=== PATIENT | female | born 1965 | race African-American/Black ===

== ENCOUNTER → 2017-12-22 | Day surgery (SDC) | payer BC ==
[~2017-12-22] VITALS: Ht 163.8 cm; Wt 51.3 kg
[2017-12-22] VITALS (9 sets, daily range): BP systolic 96–112; BP diastolic 56–68
[~2017-12-22] MED LIST: Acetaminophen (Non formulary) 100 ML IV ONE; Atropine Inj 1mg/10ml Syr IV PRN; Bacitracin 50000 Units Vial ONE; Bacitracin Oint 15gm Tube TOPIC ONE; Dexamethasone 4mg/ml vial ONE; DiphenhydrAMINE 50mg/ml Inj IVP PRN; EPINEPHrine 1mg/1ml Amp ONE; HYDROcodone/Acetamin 7.5/325 tab ORAL PRN; Hydromorphone 0.5mg/0.5ml inj IVP PRN; Ketorolac 30mg Inj IV PRN; LORazepam Inj 2mg/ml 1ml IV PRN; LR 1000ml 1,000 ML IVLG SCH; LR 1000ml ONE; Labetalol 5mg/ml 20ml vial IV PRN; Lidocaine 1% 10mg/ml/Epi 0.005mg/ml 30ml vial INJ ONE; Lidocaine 1% MPF 10mg/ml 5ml ONE; Lidocaine 1% Plain 30 ml INJ ONE; Metoclopramide 10mg/2ml Inj IVP PRN; Midazolam 2mg/2ml Inj IVP PRN; NS 110ml IRRIG ONE; Norco 5mg/325mg tab ORAL PRN; Propofol 200mg/20ml IV ONE; Ropivacaine 5mg/ml Vial 30ml INJ ONE; Sodium Chloride 10ml vial INJ ONE; Sodium Chloride 500ML 500 ML IV ONE; fentaNYL 100 mcg/2 mL IV ONE; fentaNYL 100 mcg/2 mL IV PRN; oxyCODONE HCL/Acetaminophen 5/325mg ORAL PRN
--- NOTE | 2017-12-22 13:33 | Emergency Room Report ---
History of Present Illness General Chief Complaint: General Complaint Source: Patient Present Illness HPI Patient is a 52-year-old female who presented after increased right-sided breast swelling. Patient had recent plastic surgery which included facial as well as a scar revision. The patient was noted to have increased swelling to her right breast. Patient denied any severe pain. She reportedly had been taking medications for nausea. She had surgery yesterday. Patient is followed by Dr. Bruce Lee. The patient was noted to have no fever or dizziness. She denies any leg pain or swelling. She broke having breakfast at aproximately 9 AM. Allergies: Coded Allergies: No Known Allergies (Unverified , 12/22/17) Patient History Last Menstrual Period: 11/07/17 Reviewed Nursing Documentation: PMH: Agreed; PSxH: Agreed Nursing Documentation-PMH Past Medical History: No Stated History Review of Systems All Other Systems: negative except mentioned in HPI Physical Exam Vital Signs Date Time Temp Pulse Resp B/P (MAP) Pulse Ox O2 Delivery O2 Flow Rate FiO2 12/22/17 13:06 98.0 98 18 104/65 95 Room Air 98.1 Sp02 EP Interpretation: reviewed, normal General Appearance: normal inspection, well appearing, no apparent distress, alert, GCS 15 Head: atraumatic ENT: normal ENT inspection, hearing grossly normal, normal voice Neck: normal inspection, full range of motion, supple, no bony tend Respiratory: normal inspection, lungs clear, normal breath sounds, no respiratory distress, no retraction, no wheezing Cardiovascular #1: regular rate, rhythm, no edema Gastrointestinal: normal inspection, normal bowel sounds, non tender, soft, no guarding, no hernia Genitourinary: no CVA tenderness Musculoskeletal: normal inspection, back normal, normal range of motion Neurologic: normal inspection, alert, oriented x3, responsive, hog dropper III-XII nml as tested, motor strength/tone normal, speech normal Psychiatric: normal inspection, judgement/insight normal, mood/affect normal Skin: no rash, other - multiple areas of likely postsurgical bruising Medical Decision Making Diagnostic Impression: Primary Impression: Hematoma Additional Impression: S/P plastic surgery ER Course Patient presented for hematoma. Differential diagnosis included was not limited to coagulopathy, trauma, thrombocytopenia, anemia among others.Because of complexity of patient's case laboratory testing and imaging studies were ordered.Laboratory testing was notable for elevated white blood count consistent with patient's recent surgery. The patient's QT was noted be slightly prolonged. This may be due to patient's medications. The patient was noted to be taking scopolamine for nausea as well as Effexor. Per discussion with Dr. Lee the patient will be given antibiotics preoperatively The patient will be taken to the OR for operative management of hematoma by Dr. Lee. The patient's pain Appears well-controlled. Labs Test 12/22/17 13:33 White Blood Count 16.6 K/UL (4.8-10.8) Red Blood Count 3.92 M/UL (4.20-5.40) Hemoglobin 12.1 G/DL (12.0-16.0) Hematocrit 36.3 % (37.0-47.0) Mean Corpuscular Volume 93 FL (80-99) Mean Corpuscular Hemoglobin 31.0 PG (27.0-31.0) Mean Corpuscular Hemoglobin Concent 33.4 G/DL (32.0-36.0) Red Cell Distribution Width 12.0 % (11.6-14.8) Platelet Count 332 K/UL (150-450) Mean Platelet Volume 5.6 FL (6.5-10.1) Neutrophils (%) (Auto) 83.2 % (45.0-75.0) Lymphocytes (%) (Auto) 8.8 % (20.0-45.0) Monocytes (%) (Auto) 7.9 % (1.0-10.0) Eosinophils (%) (Auto) 0.0 % (0.0-3.0) Basophils (%) (Auto) 0.2 % (0.0-2.0) Prothrombin Time 11.3 SEC (9.30-11.50) Prothromb Time International Ratio 1.1 (0.9-1.1) Activated Partial Thromboplast Time 26 SEC (23-33) Urine HCG, Qualitative Negative (NEGATIVE) Sodium Level 139 MMOL/L (136-145) Potassium Level 3.9 MMOL/L (3.5-5.1) Chloride Level 106 MMOL/L (98-107) Carbon Dioxide Level 30 MMOL/L (21-32) Anion Gap 3 mmol/L (5-15) Blood Urea Nitrogen 8 mg/dL (7-18) Creatinine 0.9 MG/DL (0.55-1.30) Estimat Glomerular Filtration Rate > 60 mL/min (>60) Glucose Level 108 MG/DL (74-106) Calcium Level 8.5 MG/DL (8.5-10.1) Total Bilirubin 0.6 MG/DL (0.2-1.0) Aspartate Amino Transf (AST/SGOT) 15 U/L (15-37) Alanine Aminotransferase (ALT/SGPT) 16 U/L (12-78) Alkaline Phosphatase 41 U/L (46-116) Total Protein 6.2 G/DL (6.4-8.2) Albumin 3.3 G/DL (3.4-5.0) Globulin 2.9 g/dL Albumin/Globulin Ratio 1.1 (1.0-2.7) EKG Diagnostic Results Rate: normal Rhythm: NSR ST Segments: no acute changes Last Vital Signs Date Time Temp Pulse Resp B/P (MAP) Pulse Ox O2 Delivery O2 Flow Rate FiO2 12/22/17 13:06 98.0 98 18 104/65 95 Room Air 98.1 Status: unchanged Disposition: PLACE IN OBSERVATION Condition: Stable Scripts No Active Prescriptions or Reported Meds Giovanni Tompkins MD Dec 22, 2017 13:33
[2017-12-22 13:57] LABS: INR 1.1 (0.9-1.1)
[2017-12-22 13:58] LABS: BASOPHILS % (AUTO) 0.2 % (0.0-2.0); HEMATOCRIT 36.3 % (37.0-47.0); HEMOGLOBIN 12.1 G/DL (12.0-16.0); LYMPHOCYTES % (AUTO) 8.8 % (20.0-45.0); MEAN CORPUSCULAR VOLUME 93 FL (80-99); MONOCYTES % (AUTO) 7.9 % (1.0-10.0); NEUTROPHILS % (AUTO) 83.2 % (45.0-75.0); PLATELET COUNT 332 K/UL (150-450); RED BLOOD COUNT 3.92 M/UL (4.20-5.40); WHITE BLOOD COUNT 16.6 K/UL (4.8-10.8)
[2017-12-22 14:03] LABS: ANION GAP 3 mmol/L (5-15); BLOOD UREA NITROGEN 8 mg/dL (7-18); CALCIUM 8.5 MG/DL (8.5-10.1); CARBON DIOXIDE 30 MMOL/L (21-32); CHLORIDE 106 MMOL/L (98-107); CREATININE 0.9 MG/DL (0.55-1.30); POTASSIUM 3.9 MMOL/L (3.5-5.1); SODIUM 139 MMOL/L (136-145)
[2017-12-22 14:08] LABS: ALANINE AMINOTRANSFERASE 16 U/L (12-78); ALBUMIN 3.3 G/DL (3.4-5.0); ALBUMIN/GLOBULIN RATIO 1.1 (1.0-2.7); ALKALINE PHOSPHATASE 41 U/L (46-116); ASPARTATE AMINO TRANSFERASE 15 U/L (15-37); BILIRUBIN,TOTAL 0.6 MG/DL (0.2-1.0)
--- NOTE | 2017-12-22 14:15 | Pre-Procedure Note/Attestation ---
Pre-Procedure Note/Attestation Complete Prior to Procedure Planned Procedure: right Procedure Narrative: Exploration of right breast and evacuation of hematoma Indications for Procedure Pre-Operative Diagnosis: Right breast hematoma Attestation I attest that I discussed the nature of the procedure; its benefits; risks and complications; and alternatives (and the risks and benefits of such alternatives ), prior to the procedure, with the patient (or the patient's legal franchise sales representative). I attest that, if there was a reasonable possibility of needing a blood transfusion, the patient (or the patient's legal franchise sales representative) was given the [facility] standardized written summary, pursuant to the Danny Buzz Blood Safety Act ([place] Health and Safety Code # 1645, as amended). I attest that I re-evaluated the patient just prior to the surgery and that there has been no change in the patient's H&P, except as documented below: MARIA E LEWIS M.D. Dec 22, 2017 14:15
--- NOTE | 2017-12-22 16:28 | Anethesia Preoperative Eval ---
Anesthesia Pre-op PMH/ROS General Date of Evaluation: Dec 22, 2017 Time of Evaluation: 17:01 Anesthesiologist: Kam ASA Score: ASA 2 - Emergency Mallampati Score Class I : Soft palate, uvula, fauces, pillars visible Class II: Soft palate, uvula, fauces visible Class III: Soft palate, base of uvula visible Class IV: Only hard plate visible Mallampati Classification: Class I Surgeon: Jesus Diagnosis: R Breast Hematoma Surgical Procedure: I an D R Breast Hematoma Anesthesia History: none Family History: no anesthesia problems Allergies: Coded Allergies: No Known Allergies (Unverified , 12/22/17) Medications: see eMAR Past Medical History Hematology/Immune: Reports: anemia Anesthesia Pre-op Phys. Exam Physician Exam Last Vital Signs Date Time Temp Pulse Resp B/P (MAP) Pulse Ox O2 Delivery O2 Flow Rate FiO2 12/22/17 15:05 98.1 87 19 112/68 96 Room Air 98.1 Constitutional: NAD Neurologic: CN 2-12 intact Cardiovascular: RRR Respiratory: CTA Gastrointestinal: S/NT/ND Airway Exam Mallampati Score: Class I MO: full ROM: full Teeth: intact Anesthesia Pre-op A/P Labs Hematology Test 12/22/17 13:33 White Blood Count 16.6 K/UL (4.8-10.8) H Red Blood Count 3.92 M/UL (4.20-5.40) L Hemoglobin 12.1 G/DL (12.0-16.0) Hematocrit 36.3 % (37.0-47.0) L Mean Corpuscular Volume 93 FL (80-99) Mean Corpuscular Hemoglobin 31.0 PG (27.0-31.0) Mean Corpuscular Hemoglobin Concent 33.4 G/DL (32.0-36.0) Red Cell Distribution Width 12.0 % (11.6-14.8) Platelet Count 332 K/UL (150-450) Mean Platelet Volume 5.6 FL (6.5-10.1) L Neutrophils (%) (Auto) 83.2 % (45.0-75.0) H Lymphocytes (%) (Auto) 8.8 % (20.0-45.0) L Monocytes (%) (Auto) 7.9 % (1.0-10.0) Eosinophils (%) (Auto) 0.0 % (0.0-3.0) Basophils (%) (Auto) 0.2 % (0.0-2.0) Coagulation Test 12/22/17 13:33 Prothrombin Time 11.3 SEC (9.30-11.50) Prothromb Time International Ratio 1.1 (0.9-1.1) Activated Partial Thromboplast Time 26 SEC (23-33) Chemistry Test 12/22/17 13:33 Sodium Level 139 MMOL/L (136-145) Potassium Level 3.9 MMOL/L (3.5-5.1) Chloride Level 106 MMOL/L (98-107) Carbon Dioxide Level 30 MMOL/L (21-32) Anion Gap 3 mmol/L (5-15) L Blood Urea Nitrogen 8 mg/dL (7-18) Creatinine 0.9 MG/DL (0.55-1.30) Estimat Glomerular Filtration Rate > 60 mL/min (>60) Glucose Level 108 MG/DL (74-106) H Calcium Level 8.5 MG/DL (8.5-10.1) Total Bilirubin 0.6 MG/DL (0.2-1.0) Aspartate Amino Transf (AST/SGOT) 15 U/L (15-37) Alanine Aminotransferase (ALT/SGPT) 16 U/L (12-78) Alkaline Phosphatase 41 U/L (46-116) L Total Protein 6.2 G/DL (6.4-8.2) L Albumin 3.3 G/DL (3.4-5.0) L Globulin 2.9 g/dL Albumin/Globulin Ratio 1.1 (1.0-2.7) Urine Test Test 12/22/17 13:33 Urine HCG, Qualitative Negative (NEGATIVE) Risk Assessment & Plan Assessment: ASA 2E Plan: GA, BIS Status Change Before Surgery: No Pre-Antibiotics Dru Gram Ancef IV Given Within 1 Hr of Incision: Yes Time Given: 17:21 Vince Humphrey MD Dec 22, 2017 16:28
--- NOTE | 2017-12-22 16:59 | Immediate Post-Op Evaluation ---
Immediate Post-Op Evalulation Immediate Post-Op Evalulation Procedure: I an D R Breast Hematoma Date of Evaluation: Dec 22, 2017 Time of Evaluation: 19:12 IV Fluids: 500 LR Blood Products: 0 Estimated Blood Loss: 50 Urinary Output: 0 Blood Pressure Systolic: 107 Blood Pressure Diastolic: 62 Pulse Rate: 93 Respiratory Rate: 16 O2 Sat by Pulse Oximetry: 100 Temperature (Fahrenheit): 97.4 Pain Score (1-10): 2 Nausea: No Vomiting: No Complications 0 Patient Status: awake, reacts, patent, extubated, none Hydration Status: adequate Dru Gram Ancef IV Given Within 1 Hr of Incision: Yes Time Given: 17:21 Vince Humphrey MD Dec 22, 2017 16:59
--- NOTE | 2017-12-22 17:00 | 48 Hour Post Anesthesia Eval ---
Post Anesthesia Evaluation Procedure: I an D R Breast Hematoma Date of Evaluation: Dec 22, 2017 Time of Evaluation: 21:34 Blood Pressure Systolic: 106 0: 62 Pulse Rate: 78 Respiratory Rate: 18 Temperature (Fahrenheit): 98.2 O2 Sat by Pulse Oximetry: 100 Airway: patent Nausea: No Vomiting: No Pain Intensity: 2 Hydration Status: adequate Cardiopulmonary Status: Stable Mental Status/LOC: patient returned to baseline Follow-up Care/Observations: 0 Post-Anesthesia Complications: 0 Follow-up care needed: N/A Vince Humphrey MD Dec 22, 2017 17:00
--- NOTE | 2017-12-22 18:52 | Discharge Instructions ---
Discharge Instructions Discharge Instructions Resume Normal Activity?: No Activity: ambulate w/ assist only, bedrest Follow Up Orders discharge to [facility] Return to Work/School on: Dec 22, 2017 For Congestive Heart Failure Reminder Report to your physician any weight gain of 5 pounds or more in one week. MARIA E LEWIS M.D. Dec 22, 2017 18:52
--- NOTE | 2017-12-23 18:44 | Cardiology Report ---
APPROVED REPORT EKG Measurement Heart [id number] Normal sinus rhythm with sinus arrhythmia Normal ECG
--- NOTE | 2017-12-25 10:48 | Operative Note - Dictated ---
DATE OF OPERATION: 12/22/2017 PREOPERATIVE DIAGNOSIS: Right breast hematoma. POSTOPERATIVE DIAGNOSIS: Right breast hematoma. PROCEDURE: Exploration of right breast and evacuation of hematoma and placement of drain. SURGEON: Dony Lee M.D. OPTICAL TECHNICIAN: None. ANESTHESIA: Laryngeal mask airway general anesthesia. PROCEDURE IN DETAIL: After consent was obtained, the patient was taken to the operating room and placed supine on the table. Adequate general anesthesia was established and after injection of 10 mL of 0.5% lidocaine with epinephrine solution, the chest was prepped and draped in the usual sterile surgical fashion. The inferior limb of the vertical incision was opened bluntly and the sutures removed. Some clots and hematoma was found in the inferior portion of the breast and a larger amount of blood was found in the superior portion of the breast. Approximately 100 mL of blood was evacuated without difficulty and the wound was copiously irrigated with antibiotic-containing solution. Some small points of bleeding were coagulated and a James drain was placed and drawn out the inframammary fold laterally. The incisions were then closed with a deep layer of 2-0 PDS followed by 3-0 Monocryl and 5-0 Prolene for the skin. A compressive wrap dressing and bias was placed very securely and the patient was taken to recovery in excellent condition with all sponge and instrument counts correct at the end of the case. Dony Lee MD DR: YONI JOB#: [id number] CC:
== END | disposition home or self-care (01) ==
LOC: EMR 13:30 → SUR 14:27 → EDBEDREQ 16:23 → EDBEDREQSVC 16:25
DX: N64.89 Other specified disorders of breast (principal); D64.9 Anemia, unspecified
CPT/HCPCS: 10140; 36415; 80053; 81025; 85025; 85610; 85730; 93005; J0171; J0690; J1100; J2001; J2250; J2405; J2704; J2795; J3010; J7120; 94003; 94150

== ENCOUNTER 2018-01-07 08:56 | Outpatient (RCR) | payer SELFPAY | END 2018-01-11 | disposition home or self-care (01) | LOC: WCC 08:56 | DX: L76.32 Postprocedural hematoma of skin and subcutaneous tissue following other procedure (principal) | CPT/HCPCS: G0277; G0463 ==